=== PATIENT | male | born 1995 | race African-American/Black ===

== ENCOUNTER 2024-02-24 09:44 | Emergency (ER) | payer SELFPAY ==
[2024-02-24 10:52] LABS: BASOPHILS ABSOLUTE AUTO 0.04 K/uL (0.00-0.20); BASOPHILS PERCENT AUTO 0.2 % (0.0-1.0); EOSINOPHILS ABSOLUTE AUTO 0.04 K/uL (0.00-0.45); EOSINOPHILS PERCENT AUTO 0.2 % (0.0-6.0); HEMATOCRIT 45.4 % (42.0-52.0); HEMOGLOBIN 15.9 g/dL (14.0-18.0); IMMATURE GRAN ABSOLUTE AUTO 0.05 K/uL (0.00-0.05); IMMATURE GRAN PERCENT AUTO 0.3 % (0.0-0.4); LYMPHOCYTES ABSOLUTE AUTO 3.76 K/uL (1.00-4.80); LYMPHOCYTES PERCENT AUTO 23.1 % (24.0-44.0); MEAN CORPUSCULAR HEMOGLOBIN 30.1 pg (28.0-32.0); MEAN PLATELET VOLUME 8.5 fL (9.4-12.4); MONOCYTES ABSOLUTE AUTO 1.01 K/uL (0.00-0.80); MONOCYTES PERCENT AUTO 6.2 % (0.0-8.0); NEUTROPHILS ABSOLUTE AUTO 11.39 K/uL (1.80-7.70); PLATELET COUNT,PLT 333 K/uL (150-400); RED BLOOD CELL COUNT 5.28 M/uL (4.52-5.90); WHITE BLOOD CELL COUNT,WBC 16.29 K/uL (3.9-11.3)
[2024-02-24] MEDS: Sodium Chloride 0.9% 1,000 ML IV ONE (10:55)
[2024-02-24] MEDS: methylPREDNISolone Sodium Succinate 125 MG/2 ML SDV IVPUSH ONE (10:55)
[2024-02-24] MEDS: Clindamycin Phosphate in D5W 600 MG in Premix Bag 1 BAG IV ONE (10:56)
[2024-02-24] MEDS: Acetaminophen/oxyCODONE 325-5 MG Tab PO ONE (11:02)
[2024-02-24 11:14] LABS: CORONAVIRUS COVID-19 NAA NEGATIVE (NEGATIVE); INFLUENZA A NAA NEGATIVE (NEGATIVE); INFLUENZA B NAA NEGATIVE (NEGATIVE)
[2024-02-24 11:19] LABS: A/G RATIO 0.5 (0.9-1.6); ALBUMIN 3.3 g/dL (3.4-5.0); BILIRUBIN TOTAL 0.5 mg/dL (0.2-1.0); CALCIUM 9.7 mg/dL (8.5-10.1); CARBON DIOXIDE,CO2 28.5 mmol/L (21.0-32.0); CREATININE 1.3 mg/dL (0.8-1.3); EST CRCL DRUG DOSING (CG) 86.57 mL/min; PROTEIN TOTAL,TP 9.5 g/dL (6.4-8.2)
[2024-02-24 11:21] LABS: LACTIC ACID 1.6 mmol/L (0.4-2.0)
[2024-02-24] MEDS: Iopamidol 755 MG/ML 500 ML Multipack Bottle IVPUSH STA (12:05)
[2024-02-24] MEDS: Lidocaine 2% 5 ML SDV ONE (12:53)
== END 2024-02-24 14:25 | disposition home or self-care (01) ==
LOC: MW.ED 09:44
DX: J36 Peritonsillar abscess (principal); Z75.8 Other problems related to medical facilities and other health care; Z79.899 Other long term (current) drug therapy
CPT/HCPCS: 0240U; 36415; 42700; 70491; 80053; 83605; 85025; 87040; 87651; 96365; 96375; 99284; A9270; J0736; J2930; J7030; Q9967; 10060; J3490